=== PATIENT | female | born 2000 | race Two or more races ===

== ENCOUNTER 2021-04-16 14:12 | Emergency (ER) | payer OTHER ==
[~2021-04-16] VITALS: Ht 165.1 cm; Wt 45.8 kg
[2021-04-16] MEDS ORDERED: PRENATAL + DHA1 EAC1 PO (14:22)
[2021-04-16] MEDS ORDERED: ACETAMINOPHEN650 M2 PO (19:01)
[2021-04-16] MEDS ORDERED: CEPHALEXIN500 M1 PO (19:01)
== END 2021-04-16 21:22 | disposition home or self-care (01) ==
LOC: ER 14:12
DX: O21.0 Mild hyperemesis gravidarum (principal); E86.0 Dehydration; N39.0 Urinary tract infection, site not specified; Z03.818 Encounter for observation for suspected exposure to other biological agents ruled out

== ENCOUNTER 2021-06-23 17:08 | Emergency (ER) | payer OTHER ==
[~2021-06-23] VITALS: Ht 165.1 cm; Wt 50.3 kg
[~2021-06-23 17:08] MED LIST: ACETAMINOPHEN650 M2 PO; CEPHALEXIN500 M1 PO; PRENATAL + DHA1 EAC1 PO
== END 2021-06-23 21:33 | disposition home or self-care (01) ==
LOC: ER 17:08
DX: A49.3 Mycoplasma infection, unspecified site (principal); N39.0 Urinary tract infection, site not specified

== ENCOUNTER 2021-09-29 22:11 | Outpatient (CLI) | payer OTHER | END 2021-09-29 22:30 | disposition home or self-care (01) | LOC: NST 22:11 | PROVIDERS: ATTEND Obstetrics & Gynecology | DX: Z34.83 Encounter for supervision of other normal pregnancy, third trimester (principal) ==

== ENCOUNTER 2021-10-01 07:12 | Inpatient (IN) | payer OTHER ==
[~2021-10-01] VITALS: Ht 165.1 cm; Wt 56.7 kg
[2021-10-01] MEDS ORDERED: PRENATAL TABLE1 EAC1 PO (08:28)
== END 2021-10-03 11:24 | disposition home or self-care (01) | DRG 807 ==
LOC: LDR 07:12 → OB/GYN 20:44
PROVIDERS: ADMIT Obstetrics & Gynecology; ATTEND Obstetrics & Gynecology
PROC: 10E0XZZ Delivery of Products of Conception, External Approach (ICD-10-PCS; principal; 2021-10-01)
PROC: 4A1HXCZ Monitoring of Products of Conception, Cardiac Rate, External Approach (ICD-10-PCS; 2021-10-01)
DX: O80 Encounter for full-term uncomplicated delivery (principal); Z37.0 Single live birth; Z3A.39 39 weeks gestation of pregnancy; Z20.822 Contact with and (suspected) exposure to COVID-19

== ENCOUNTER 2022-02-26 23:18 | Emergency (ER) | payer OTHER ==
[~2022-02-26] VITALS: Ht 165.1 cm; Wt 46.3 kg
[~2022-02-26 23:18] MED LIST changes: +PRENATAL TABLE1 EAC1 PO
== END 2022-02-27 | disposition left against medical advice (07) ==
LOC: ER 23:18
DX: Z53.21 Procedure and treatment not carried out due to patient leaving prior to being seen by health care provider (principal)

== ENCOUNTER 2023-03-19 23:12 | Emergency (ER) | payer OTHER ==
[~2023-03-19] VITALS: Ht 165.1 cm; Wt 47.6 kg
== END 2023-03-20 01:00 | disposition home or self-care (01) ==
LOC: ER 23:12
DX: S61.412A Laceration without foreign body of left hand, initial encounter (principal); W25.XXXA Contact with sharp glass, initial encounter; Y93.9 Activity, unspecified; Y92.89 Other specified places as the place of occurrence of the external cause; Y99.9 Unspecified external cause status

== ENCOUNTER 2023-06-04 18:49 | Emergency (ER) | payer OTHER ==
[~2023-06-04] VITALS: Ht 165.1 cm; Wt 47.6 kg
[2023-06-04 20:47] LABS: HEMATOCRIT 34.2 % (36.0-45.00); HEMOGLOBIN 11.7 g/dL (12.0-15.00); MEAN CELL VOLUME 88.2 fL (80.00-100.00); MEAN CORPUSCULAR HEMOGLOBIN 30.2 pg (27.00-32.0); MEAN CORPUSCULAR HGB CONC 34.3 g/dl (32.0-36.0); PLATELET COUNT 257 K/uL (150-450); RED BLOOD COUNT 3.88 M/uL (4.00-6.00); RED CELL DISTRIBUTION WIDTH 13.5 % (11.5-14.5)
== END 2023-06-04 22:15 | disposition home or self-care (01) ==
LOC: ER 18:49
PROVIDERS: Emergency Medicine
DX: O20.9 Hemorrhage in early pregnancy, unspecified (principal); Z3A.01 Less than 8 weeks gestation of pregnancy

== ENCOUNTER 2023-08-03 12:52 | Emergency (ER) | payer OTHER ==
[~2023-08-03] VITALS: Ht 165.1 cm; Wt 49.9 kg
[2023-08-03 15:46] LABS: HEMATOCRIT 36.2 % (36.0-45.00); HEMOGLOBIN 12.5 g/dL (12.0-15.00); MEAN CELL VOLUME 90.4 fL (80.00-100.00); MEAN CORPUSCULAR HEMOGLOBIN 31.2 pg (27.00-32.0); MEAN CORPUSCULAR HGB CONC 34.5 g/dl (32.0-36.0); PLATELET COUNT 244 K/uL (150-450); RED CELL DISTRIBUTION WIDTH 14.1 % (11.5-14.5)
[2023-08-03 16:14] LABS: ALBUMIN 3.6 gm/dL (3.4-5.0); BILIRUBIN TOTAL 0.49 mg/dL (0.3-1.2); CALCIUM 9.1 mg/dL (8.5-10.1); CREATININE SERUM 0.56 mg/dL (0.55-1.02); GLOBULINA 4.7 G/DL (2.4-3.5); POTASSIUM 3.59 mEq/L (3.5-5.1); TOTAL PROTEIN 8.3 gm/dL (6.4-8.2)
[2023-08-03 16:52] LABS: PH,URINE 5.5 (5.0-8.0); URINE APPEARANCE Clear; URINE BILIRRUBIN Negative (NEGATIVE); URINE BLOOD Negative; URINE COLOR Yellow; URINE GLUCOSE Negative (NEGATIVE); URINE LEUKOCYTE Negative; URINE NITRATE Negative; URINE PROTEIN Trace (NEGATIVE); URINE UROBILINOGEN 0.2 E.U./dl
[2023-08-03 16:56] LABS: URINE BACTERIA 258.2 uL (0.0-1933); URINE EPITHELIAL CELLS 26.2 uL (0.0-38.8); URINE RBC 6.4 uL (0.0-20.8); URINE WBC 7.7 uL (0.0-23.2)
== END 2023-08-03 18:14 | disposition home or self-care (01) ==
LOC: ER 12:53
PROVIDERS: General Practice
DX: O99.612 Diseases of the digestive system complicating pregnancy, second trimester (principal); K92.89 Other specified diseases of the digestive system; K52.9 Noninfective gastroenteritis and colitis, unspecified; Z3A.14 14 weeks gestation of pregnancy

== ENCOUNTER 2023-09-08 10:58 | Outpatient (CLI) | payer OTHER | END 2023-09-08 11:02 | disposition home or self-care (01) | LOC: PRENATAL 10:58 | PROVIDERS: ATTEND Obstetrics & Gynecology Maternal & Fetal Medicine | DX: O35.9XX0 Maternal care for (suspected) fetal abnormality and damage, unspecified, not applicable or unspecified (principal); O35.3XX0 Maternal care for (suspected) damage to fetus from viral disease in mother, not applicable or unspecified; O44.00 Complete placenta previa NOS or without hemorrhage, unspecified trimester; Z3A.19 19 weeks gestation of pregnancy ==

== ENCOUNTER 2025-07-23 14:26 | Emergency (ER) | payer OTHER ==
[~2025-07-23] VITALS: Ht 165.1 cm; Wt 51.3 kg
[2025-07-23] MEDS ORDERED: FAMOTIDINE/PF 20 MG/2 ML VIAL IV ONE (16:00)
[2025-07-23] MEDS ORDERED: ACETAMINOPHEN 500 MG GEL..CAP PO ONE ×2 (16:12→16:15)
[2025-07-23] MEDS ORDERED: FAMOTIDINE/PF 20 MG/2 ML VIAL ONE (16:13)
[2025-07-23] MEDS ORDERED: ONDANSETRON HCL 2 MG/ML VIAL ONE (16:13)
[2025-07-23] MEDS ORDERED: ONDANSETRON HCL 2 MG/ML VIAL IV ONE (16:15)
[2025-07-23] MEDS ORDERED: 0.9 % SODIUM CHLORIDE 500 ML IV ONE (16:15)
[2025-07-23 16:42] LABS: BASO % 0.1 % (0.1-1.2); EOS # 0.01 (0.04-0.54); EOS % 0.1 % (0.7-7.0); LYMPH # 0.95 (1.18-3.74); LYMPH % 13.7 % (19.3-53.1); MEAN PLATELET VOLUME 10.90 fl (9.4-12.4); MONO # 0.52 (0.24-0.82); MONO % 7.5 % (4.7-12.5); NEUT # 5.41 (1.56-6.13); NEUT % 78.2 % (34.0-71.1); RED CELL DISTRIBUTION WIDTH 14.2 % (11.6-14.4)
[2025-07-23 17:03] LABS: COVID-19 AG NEGATIVE (NEGATIVE)
[2025-07-23 17:17] LABS: ALT/SGPT 25.0 U/L (12-78); AST/SGOT 19.0 U/L (15-37); BILIRUBIN TOTAL 0.44 mg/dL (0.3-1.2); BUN CREA RATIO 21.0 (7.0-25.0); CREATININE SERUM 0.48 mg/dL (0.55-1.02); GFR 156.33; GLOBULINA 4.0 G/DL (2.4-3.5); GLUCOSE FASTING 88.0 mg/dL (65-100); OSMOLALITY SERUM 270.0 MOSM/KG (275-295)
[2025-07-23 18:18] LABS: URINE APPEARANCE Clear; URINE BILIRRUBIN Negative (NEGATIVE); URINE BLOOD Negative; URINE COLOR Dark Yellow; URINE GLUCOSE Negative (NEGATIVE); URINE LEUKOCYTE Negative; URINE NITRATE Negative; URINE PROTEIN 30 (NEGATIVE); URINE UROBILINOGEN 1.0 E.U./dl
[2025-07-23 18:19] LABS: URINE BACTERIA 305.3 uL (0.0-1933); URINE EPITHELIAL CELLS 16.2 uL (0.0-38.8); URINE RBC 4.5 uL (0.0-20.8); URINE WBC 12.3 uL (0.0-23.2)
[2025-07-23 18:29] LABS: URINE CAST 0.28 uL (0.0-1.40); URINE KETONE 40 (NEGATIVE)
[2025-07-23] MEDS ORDERED: OSEL75CA PO (18:54)
[2025-07-23] MEDS ORDERED: ZYRTEC10 MG PO (18:54)
[2025-07-23] MEDS ORDERED: OSELTAMIVIR PHOSPHATE 75 MG CAPSULE PO ONE ×2 (19:00→19:22)
== END 2025-07-23 19:39 ==
LOC: ER 14:27
PROVIDERS: General Practice
DX: O26.892 Other specified pregnancy related conditions, second trimester (principal); Z3A.15 15 weeks gestation of pregnancy; R50.9 Fever, unspecified; R10.20 Pelvic and perineal pain unspecified side; M54.59 Other low back pain; R51.9 Headache, unspecified; H57.13 Ocular pain, bilateral; J10.1 Influenza due to other identified influenza virus with other respiratory manifestations; Z20.822 Contact with and (suspected) exposure to COVID-19